=== PATIENT | male | born 1965 | race Two or more races ===

== ENCOUNTER → 2021-12-28 | Emergency (ER) | payer OTHER ==
[~2021-12-28] VITALS: Ht 172.7 cm; Wt 73.9 kg
== END | disposition designated cancer center or children's hospital (05) ==
LOC: ER 18:33
DX: I60.9 Nontraumatic subarachnoid hemorrhage, unspecified (principal); Z88.6 Allergy status to analgesic agent; R51.9 Headache, unspecified; Z20.822 Contact with and (suspected) exposure to COVID-19